=== PATIENT | male | born 1985 | race Caucasian/White ===

== ENCOUNTER 2024-01-19 08:00 | Outpatient (CLI) | payer OTHER ==
--- NOTE | 2024-01-19 10:22 | XRAY Report ---
PROCEDURE: Tib/Fib RT INDICATIONS: ANKLE PAIN, RIGHT TECHNIQUE: 2 views of the tibia and fibula were acquired. COMPARISON: None. FINDINGS: Bones: No displaced fracture or dislocation. Soft tissues: No suspicious calcifications. IMPRESSION: No acute radiographic abnormality. If there is high concern for further derangement, consider MRI blanquita luation. Reviewed by: Michael Albert MD on 01/19/2024 10:21 AM PDT Approved by: Michael Albert MD on 01/19/2024 10:21 AM PDT Station ID: [id number]
--- NOTE | 2024-01-19 10:22 | XRAY Report ---
PROCEDURE: Ankle 3+V RT INDICATIONS: ANKLE PAIN, RIGHT TECHNIQUE: 3 views of the ankle were acquired. COMPARISON: None. FINDINGS: Bones: No displaced fracture or dislocation. Mild osteophytes at the dorsal talus. Soft tissues: Soft tissue swelling is present. IMPRESSION: No acute displaced fracture or dislocation. Soft tissue swelling could be from ligamentous injury. If there is high concern for further derangement, consider MRI evaluation. Reviewed by: Michael Albert MD on 01/19/2024 10:21 AM PDT Approved by: Michael Albert MD on 01/19/2024 10:21 AM PDT Station ID: [id number]
== END 2024-01-19 08:15 | disposition home or self-care (01) ==
LOC: DI.N 08:00
PROVIDERS: ATTEND Physician Assistant Medical
DX: R22.41 Localized swelling, mass and lump, right lower limb (principal); M25.571 Pain in right ankle and joints of right foot